=== PATIENT | male | born 1930 | race African-American/Black ===

== ENCOUNTER 2018-10-12 23:08 | Emergency (ER) | payer OTHER ==
[~2018-10-12] VITALS: Ht 182.9 cm; Wt 82.0 kg
[~2018-10-12 23:08] MED LIST: AMLO5TAB88 PO; ASPI-1158 PO; AZOPT BOTHEYE; BENA20TA10 PO; CARV6.2548 PO; CILO100T PO; CLOP75TA16 PO; FERR-63 PO; FLUD0.1T PO; OMEP20TA2 PO; PRAV40TA58 PO; SITA1TAB8 PO; TAMS0.4C31 PO; TRAV2.5D BOTHEYE
[2018-10-13] MEDS ORDERED: MORPHINE SULFATE 4 MG/ML CPJ (NOT FOR IM USE) IV ONE ×2 (01:00→05:00)
[2018-10-13 01:37] LABS: HEMATOCRIT 36.1 % (42.0-52.0); HEMOGLOBIN 11.6 g/dL (14.0-18.0); MEAN CORPUSCULAR HEMOGLOBIN 26.3 pg (28.0-32.0); MEAN CORPUSCULAR VOLUME 81.7 fL (80.0-94.0); PLATELET 161 x1000/uL (130-400); RED BLOOD CELL COUNT 4.42 mill/uL (4.7-6.1); RED CELL DISTRIBUTION WIDTH 17.7 % (11.6-14.6)
[2018-10-13 01:40] LABS: CHLORIDE 105 mEq/L (98-107)
[2018-10-13 05:19] VITALS: BP 149/96
== END 2018-10-13 05:30 | disposition short-term general hospital (02) ==
LOC: ER 23:08 → CANRESERV 10-13 07:11 → ENRESERV 10-13 07:11 → CANBEDREQ 10-14 08:21
DX: S72.091A Other fracture of head and neck of right femur, initial encounter for closed fracture (principal); S12.690A Other displaced fracture of seventh cervical vertebra, initial encounter for closed fracture; I25.810 Atherosclerosis of coronary artery bypass graft(s) without angina pectoris; E11.9 Type 2 diabetes mellitus without complications; I10 Essential (primary) hypertension; Z79.82 Long term (current) use of aspirin; Z79.899 Other long term (current) drug therapy; W18.39XA Other fall on same level, initial encounter; Y93.89 Activity, other specified; Y92.89 Other specified places as the place of occurrence of the external cause; Y99.8 Other external cause status
CPT/HCPCS: 36415; 70450; 71045; 72125; 72170; 80053; 85027; 86850; 86900; 86901; 96374; 96376; 99285; J2270; L0172